=== PATIENT | female | born 1925 | race Caucasian/White ===

== ENCOUNTER 2016-07-18 05:00 | Emergency (ER) | payer MEDICARE, OTHER ==
[2016-07-18] MEDS ORDERED: IBUPROFEN 600 MG TABLET ONE (05:29)
--- NOTE | 2016-07-18 07:59 | RAD ---
CHEST 2 VIEWS HISTORY: Right rib pain. Frontal and lateral chest radiographs dated 07/18/2016. COMPARISON: 06/28/2013 FINDINGS: FOCAL AIRSPACE OPACITY: Minor reticular opacities which may reflect minor senescent or fibrotic changes. No gross airspace consolidation. PLEURAL EFFUSION: None. CARDIOMEDIASTINAL SILHOUETTE: Moderately severe cardiomegaly, worsened over the interval. Prominent hiatal hernia. Redemonstration of prominence of the right paratracheal stripe. PNEUMOTHORAX: None identified. OSSEOUS STRUCTURES: No obvious displaced rib fracture. 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 IMPRESSION: Senescent/fibrotic changes without gross airspace consolidation or pulmonary edema. Worsened cardiomegaly with prominent hiatal hernia. No obvious displaced rib fracture, recommend dedicated rib series if pain persists. Redemonstration of changes of prior thoracic vertebroplasty.
--- NOTE | 2016-07-18 08:03 | RAD ---
THORACIC SPINE SERIES HISTORY: Midthoracic pain. Frontal, swimmer's, and lateral views of the thoracic spine dated 07/18/2016. COMPARISONS: Correlation against chest series from 06/28/2013.. 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 COMPRESSION DEFORMITY: Interval development of mild to moderate wedge deformity at the approximate T8 level. Evidence of prior vertebroplasty at the approximate T5-T7 levels.. DISPLACED FRACTURE FRAGMENT: None identified. DISC SPACES: Mild to moderate upper thoracic disc space narrowing.. PEDICLES: Grossly intact, not well seen at levels of vertebroplasty. VISIBLE LUNG SEXTON: Large hiatal hernia. Paratracheal stripe density may relate to adenopathy, thyroid lesion, or vascular ectasia.. Multiple surgical clips seen on lateral view. IMPRESSION: Since 2013, interval development of mild to moderate compression deformity at the T8 level without gross retropulsion, clinically correlate for acuity. Redemonstration of prior vertebroplasty procedures, at the approximate T5-T7 levels. Prominent right paratracheal stripe and hiatal hernia.
== END 2016-07-18 06:22 | disposition home or self-care (01) ==
LOC: ED 05:00
DX: M54.6 Pain in thoracic spine (principal); I10 Essential (primary) hypertension; I25.2 Old myocardial infarction
CPT/HCPCS: 71020; 72072; 99283 ×2; A9270